=== PATIENT | male | born 1990 | race Two or more races ===

== ENCOUNTER 2020-01-06 23:39 | Emergency (ER) | payer OTHER ==
[~2020-01-06] VITALS: Ht 160 cm; Wt 63.5 kg
[2020-01-06 23:41] VITALS: BP 128/50
[2020-01-06] MEDS ORDERED: Lidocaine HCl 2% Jelly 6ml Tube TOPIC ONE (23:45)
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
[2020-01-07] MEDS ORDERED: Tetanus/Diptheria/Pertussis IM ONE
[2020-01-07] MEDS ORDERED: Omnipaque-300 100ml vial INJ PRN (00:45)
--- NOTE | 2020-01-07 02:50 | Diagnostic Imaging Report ---
EXAM: CT Abdomen and Pelvis With Intravenous Contrast CLINICAL HISTORY: PAIN TECHNIQUE: Axial computed tomography images of the abdomen and pelvis with intravenous contrast. CTDI is 4mGy and DLP is 260mGy-cm. One or more of the following dose reduction techniques were used: automated exposure control, adjustment of the mA and/or kV according to patient size, use of iterative reconstruction technique. Coronal and sagittal reformatted images were created and reviewed. COMPARISON: No relevant prior studies available. FINDINGS: Limitations: Study limited due to lack of IV contrast. Lung bases: Unremarkable. No mass. No consolidation. ABDOMEN: Liver: Unremarkable. No mass. Gallbladder and bile ducts: Unremarkable. No calcified stones. No ductal dilation. Pancreas: Unremarkable. No mass. No ductal dilation. Spleen: Unremarkable. No splenomegaly. Adrenals: Unremarkable. No mass. Kidneys and ureters: Retroaortic left renal vein. No hydronephrosis. Stomach and bowel: Unremarkable. No obstruction. No mucosal thickening. PELVIS: Appendix: Normal appendix. Bladder: Unremarkable. No mass. Reproductive: Unremarkable as visualized. ABDOMEN and PELVIS: Intraperitoneal space: Unremarkable. No free air. No significant fluid collection. Bones/joints: Chronicity indeterminate 1 cm without foreign object posterior to the right ischial spine, correlate with history. No surrounding soft tissue disruption seen to suggest an acute process. No dislocation. Soft tissues: Right anterolateral lower chest wall/upper abdominal wall skin thickening and subcutaneous stranding, this could represent a sequela of trauma, an infectious or inflammatory process, correlate with physical exam. Axial series 3 image 70. Vasculature: See above. Lymph nodes: Unremarkable. No enlarged lymph nodes. IMPRESSION: 1. Study limited due to lack of IV contrast. 2. Right anterolateral lower chest wall/upper abdominal wall skin thickening and subcutaneous stranding, this could represent a sequela of trauma, an infectious or inflammatory process, correlate with physical exam. Axial series 3 image 70. 3. Otherwise no acute abnormality definitively identified to account for patient presentation. 4. Chronicity indeterminate 1 cm without foreign object posterior to the right ischial spine, correlate with history. No surrounding soft tissue disruption seen to suggest an acute process. 5. Otherwise unremarkable study.
[2020-01-07 02:55] VITALS: BP 118/69
[2020-01-07] MEDS ORDERED: IBUPROFEN600 M1 ORAL (03:28)
[2020-01-07] MEDS ORDERED: BACITRACIN ZIN1 EACH TOPIC (03:28)
[2020-01-07] MEDS ORDERED: Bacitracin Oint UD TOPIC ONE (03:45)
[2020-01-07 04:42] VITALS: BP 118/69
--- NOTE | 2020-01-07 06:59 | Diagnostic Imaging Report ---
EXAM: XR Right Forearm, 2 Views CLINICAL HISTORY: PAIN TECHNIQUE: Frontal and lateral views of the right forearm. COMPARISON: No relevant prior studies available. FINDINGS: Bones/joints: Unremarkable. No acute fracture. No dislocation. Soft tissues: Unremarkable. IMPRESSION: Normal right forearm x-rays.
== END 2020-01-07 04:15 ==
LOC: EDBD 23:39 → EMR 23:54
DX: S30.1XXA Contusion of abdominal wall, initial encounter (principal); S80.12XA Contusion of left lower leg, initial encounter; S51.801A Unspecified open wound of right forearm, initial encounter; S31.103A Unspecified open wound of abdominal wall, right lower quadrant without penetration into peritoneal cavity, initial encounter; Y35.833A Legal intervention involving a conducted energy device, suspect injured, initial encounter; Y92.9 Unspecified place or not applicable; Z23 Encounter for immunization
CPT/HCPCS: 74176; 90471; 90715; 99284